=== PATIENT | male | born 1990 | race Two or more races ===

== ENCOUNTER 2016-11-10 10:47 | Emergency (ER) | payer BC ==
[2016-11-10 11:15] VITALS: BP 115/70
[2016-11-10] MEDS ORDERED: Aspirin Low Dose CHEW TAB* 81 MG PO ONE (12:33)
[2016-11-10] MEDS ORDERED: Ketorolac INJ* 30 MG/ML 1 ML VIAL IV PUSH ONE (12:51)
[2016-11-10 13:20] LABS: Comments Flag Yes; Hematocrit 47 % (42-52); Hemoglobin 15.5 g/dl (14.0-18.0); Mean Corpuscular HGB Conc 33 g/dl (31-36); Mean Corpuscular Hemoglobin 29 pg (27-31); Mean Corpuscular Volume 86 fL (80-94); Mean Platelet Volume 12 um3 (7.4-10.4); Red Blood Count 5.42 10^6/ul (4.0-5.4); Red Cell Distribution Width 14 % (10.5-15); White Blood Count 8.4 10^3/ul (3.5-10.8)
--- NOTE | 2016-11-10 13:20 | RAD ---
Indication: Left-sided chest pain. 2 views of the chest including dual energy PA views demonstrate no mediastinal shift. Heart is of normal size and configuration. Lung abrams demonstrate no pleural fluid, pneumonia or pneumothorax. IMPRESSION: No active cardiopulmonary disease is noted.
[2016-11-10 13:21] LABS: Add Diff/Slide Review? Slide Review Added
[2016-11-10 13:31] LABS: Albumin 4.7 g/dL (3.2-5.2); BUN/Creatinine Ratio 10.5 (8-20); Calcium 9.7 mg/dL (8.6-10.3); EGFR African American 124.2 (>60); EGFR Non-African American 96.6 (>60); Globulin 3.6 g/dL (2-4); Potassium 3.9 mmol/L (3.5-5.0); Total Bilirubin 0.7 mg/dL (0.2-1.0); Total Protein 8.3 g/dL (6.4-8.9)
--- NOTE | 2016-11-13 14:27 | ED ---
Merari Rivera Rebecca, scribed for Michael Wise MD on 11/10/16 at 1111 . HPI Chest Pain - HPI Summary HPI Summary: Pt is a 26 y/o M who presents to ED c/o CP. Pain began 2 weeks ago and has been intermittent since onset. Pain is in the left anterior region and is currently moderate, ranked 4/10 and characterized as discomfort. Applied muscle cream [employer]. Sx aggravated by movement of the LUE, alleviated by nothing, unchanged by walking up stairs. Denies cough, fever, chills, diaphoresis. No recent stress or travel prior to onset of sx. Started playing [employer] 2 weeks ago. SHx no smoking. No PMHx or FHx of DVT. No PCP, last saw a doctor about a year ago. - History of Current Complaint Chief Complaint: EDChestPainROMI Time Seen by Provider: 11/10/16 11:03 Hx Obtained From: Patient Onset/Duration: Started Weeks Ago - 2 weeks, Still Present Timing: Intermittent Current Severity: Moderate Pain Intensity: 4 Pain Scale Used: 0-10 Numeric Chest Pain Location: Left Anterior Character: Other: - "discomfort" Aggravating Factor(s): Movement - movement of the LUE Alleviating Factor(s): Nothing Associated Signs and Symptoms: Positive: Negative. Negative: Fever, Chills, Diaphoresis, Cough - Allergy/Home Medications Allergies/Adverse Reactions: Allergies Allergy/AdvReac Type Severity Reaction Status Date / Time No Known Allergies Allergy Verified 11/10/16 10:55 PMH/Surg Hx/FS Hx/Imm Hx Previously Healthy: Yes Endocrine/Hematology History: Denies: Hx Diabetes Cardiovascular History: Denies: Hx Deep Vein Thrombosis Infectious Disease History: No Infectious Disease History: Denies: Traveled Outside the [place] in Last 30 Days - Family History Known Family History: Positive: Other - No known FHx DVT - Social History Occupation: Employed Full-time Alcohol Use: None Substance Use Type: Reports: None Smoking Status (MU): Never Smoked Tobacco Review of Systems Negative: Fever, Chills, Skin Diaphoresis Negative: Erythema Negative: Sore Throat Positive: Chest Pain - Left anterior Negative: Shortness Of Breath, Cough Negative: Abdominal Pain, Vomiting, Nausea Negative: dysuria, hematuria Negative: Myalgia, Edema Negative: Rash Neurological: Other - Negative dizziness All Other Systems Reviewed And Are Negative: Yes Physical Exam - Summary Physical Exam Summary: Constitutional: Well-developed, Well-nourished, Alert. (-) Distressed Skin: Warm, Dry HENT: Normocephalic; Atraumatic Eyes: Conjunctiva normal Neck: Musculoskeletal ROM normal neck. (-) JVD, (-) Stridor, (-) Tracheal deviation Cardio: Rhythm regular, rate normal, Heart sounds normal; Intact distal pulses; The pedal pulses are 2+ and symmetric. Radial pulses are 2+ and symmetric. (-) Murmur Pulmonary/Chest wall: Effort normal. (-) Respiratory distress, (-) Wheezes, (-) Rales Abd: Soft, (-) Tenderness, (-) Distension, (-) Guarding, (-) Rebound Musculoskeletal: (-) Edema, Costochondral tenderness over the left 4th costochondral junction. Lymph: (-) Cervical adenopathy Neuro: Alert, Oriented x3 Psych: Mood and affect Normal Triage Information Reviewed: Yes Vital Signs On Initial Exam: Initial Vitals Temp Pulse Resp BP Pulse Ox 97.3 F 92 16 121/81 100 11/10/16 10:50 11/10/16 10:50 11/10/16 10:50 11/10/16 10:50 11/10/16 10:50 Vital Signs Reviewed: Yes Diagnostics - Vital Signs Vital Signs Temp Pulse Resp BP Pulse Ox 11/10/16 10:50 97.3 F 92 16 121/81 100 - Laboratory Result Diagrams: 11/10/16 12:55 11/10/16 12:55 Lab Statement: Any lab studies that have been ordered have been reviewed, and results considered in the medical decision making process. - Radiology CXR Xray Interpretation: No Acute Changes - No active cardiopulmonary disease is noted. Radiology Interpretation Completed By: Radiologist - EKG 1057 Cardiac Rate: NL - 96 bpm EKG Rhythm: Sinus Rhythm Ectopy: None EKG Interpretation: No STEMI Re-Evaluation - Re-Evaluation First Eval Re-Evaluation Time: 14:02 Comment: Updated the pt on his results and discussed D/C plan. Chest Pain Course/Dx - Course Assessment/Plan: Pt is a 26 y/o M who presents to ED c/o intermittent left anterior CP for two weeks, characterized as discomfort. Pain is currently moderate, ranked 4/10 and characterized as discomfort. Applied muscle cream [employer]. Sx aggravated by movement of the LUE, unchanged by walking up stairs. Denies cough, fever, chills, diaphoresis. No recent stress or travel prior to onset of sx. Started playing [employer] 2 weeks ago. SHx no smoking. No PMHx or FHx of DVT. CXR and EKG reveal no acute findings. Troponin of 0.00, D-Dimer < 200. He will be D/C to home with Dx of costochondritis and a [facility] physician referral. He understands and agrees. Patient medications reviewed this visit. - Diagnoses Provider Diagnoses: Costochondritis Discharge - Discharge Plan Condition: Stable Disposition: HOME Patient Education Materials: Costochondritis (ED) Referrals: [facility] PHYSICIAN REFERRAL [Outside] - 3 Days Additional Instructions: RETURN TO THE EMERGENCY DEPARTMENT FOR CHANGING OR WORSENING SYMPTOMS The documentation as recorded by the Merari cole Rebecca accurately reflects the service I personally performed and the decisions made by , Michael Wise MD.
== END 2016-11-10 14:07 | disposition home or self-care (01) ==
LOC: ED 10:47
DX: M94.0 Chondrocostal junction syndrome [Tietze] (principal)
CPT/HCPCS: 36415; 71020; 80053; 83605; 84484; 85025; 85060; 85379; 93005; 96374; 99282; J1885

== ENCOUNTER 2016-11-15 13:17 | Emergency (ER) | payer BC ==
[2016-11-15] MEDS ORDERED: Aspirin Low Dose CHEW TAB* 81 MG PO ONE (13:41)
[2016-11-15 14:11] LABS: Hematocrit 43 % (42-52); Mean Corpuscular HGB Conc 33 g/dl (31-36); Mean Corpuscular Hemoglobin 29 pg (27-31); Mean Corpuscular Volume 87 fL (80-94); Mean Platelet Volume 12 um3 (7.4-10.4); Red Cell Distribution Width 14 % (10.5-15); White Blood Count 7.3 10^3/ul (3.5-10.8)
[2016-11-15 14:17] LABS: Comments Flag Yes
[2016-11-15 14:26] LABS: Albumin 4.5 g/dL (3.2-5.2); BUN/Creatinine Ratio 11.7 (8-20); Calcium 9.5 mg/dL (8.6-10.3); EGFR African American 94.9 (>60); EGFR Non-African American 73.8 (>60); Globulin 3.3 g/dL (2-4); Potassium 3.8 mmol/L (3.5-5.0); Total Bilirubin 0.9 mg/dL (0.2-1.0); Total Protein 7.8 g/dL (6.4-8.9)
[2016-11-15] MEDS ORDERED: Iohexol 350* (CONTRAST) 500 ML MDV IV ONE (14:29)
--- NOTE | 2016-11-15 15:02 | RAD ---
Indication: Pleuritic chest pain. Contrast: Administered 62.1 ml of OMNIPAQUE 350 mg/ml CTA of the chest was performed after IV contrast administration. Coronal and sagittal reconstructed images were obtained. The pulmonary arterial tree is well opacified. There is no evidence of filling defects in the pulmonary arteries to suggest pulmonary embolus. The aorta demonstrates no evidence of aortic dissection. The heart demonstrates no pericardial effusion. There is no mediastinal or hilar adenopathy noted. The trachea and major bronchi appear patent. The lung abrams demonstrate no evidence of alveolar consolidation. The visualized abdominal organs are otherwise unremarkable. IMPRESSION: No evidence of pulmonary embolus is noted.
[2016-11-15 16:49] LABS: Urine Bilirubin Negative (Negative); Urine Glucose Negative (Negative); Urine Nitrite Negative (Negative)
[2016-11-15 16:55] VITALS: BP 128/89
--- NOTE | 2016-12-02 15:27 | ED ---
Darcie Rivera Edward, scribed for Michael Wise MD on 11/15/16 at 1340 . HPI Chest Pain - HPI Summary HPI Summary: 26 y/o male presents to the ED c/o gradual onset CP lasting 2 and a half weeks and intermittent tightness at the L arm that started a few days ago. He was seen in the ED 5 days ago for the CP and given Ibuprofen, which alleviates the CP. Pt has also developed back pain since being seen in the ED. Associated sx: Ibuprofen induces mild nausea, increased water intake and increased urination at night. Denies SOB and dyspnea. - History of Current Complaint Chief Complaint: EDChestPainROMI Time Seen by Provider: 11/15/16 13:34 Hx Obtained From: Patient Onset/Duration: Started Weeks Ago, Still Present Timing: Intermittent Pain Intensity: 5 Pain Scale Used: 0-10 Numeric Associated Signs and Symptoms: Positive: Chest Pain, Nausea, Back Pain, Other: - L arm tightness. No dyspnea. Negative: Shortness of Breath - Allergy/Home Medications Allergies/Adverse Reactions: Allergies Allergy/AdvReac Type Severity Reaction Status Date / Time No Known Allergies Allergy Verified 11/15/16 13:18 PMH/Surg Hx/FS Hx/Imm Hx Previously Healthy: No Endocrine/Hematology History: Denies: Hx Diabetes Cardiovascular History: Denies: Hx Deep Vein Thrombosis Infectious Disease History: Denies: Traveled Outside the [place] in Last 30 Days - Family History Known Family History: Positive: Other - No known FHx DVT - Social History Lives: With Family Alcohol Use: None Hx Substance Use: No Substance Use Type: Reports: None Hx Tobacco Use: No Smoking Status (MU): Never Smoked Tobacco Review of Systems Negative: Fever, Chills Negative: Erythema Negative: Sore Throat Positive: Chest Pain Negative: Shortness Of Breath, Cough Positive: Nausea. Negative: Abdominal Pain, Vomiting Negative: dysuria, hematuria Musculoskeletal: Other - L arm tightness Negative: Myalgia, Edema Negative: Rash Neurological: Other - No dizziness All Other Systems Reviewed And Are Negative: Yes Physical Exam - Summary Physical Exam Summary: Constitutional: Well-developed, Well-nourished, Alert. (-) Distressed Skin: Warm, Dry HENT: Normocephalic; Atraumatic Eyes: Conjunctiva normal Neck: Musculoskeletal ROM normal neck. (-) JVD, (-) Stridor, (-) Tracheal deviation Cardio: Rhythm regular, rate normal, Heart sounds normal; Intact distal pulses; The pedal pulses are 2+ and symmetric. Radial pulses are 2+ and symmetric. (-) Murmur Pulmonary/Chest wall: Effort normal. (-) Respiratory distress, (-) Wheezes, (-) Rales. Costochondral tenderness @ L 3rd Costochondral junction Abd: Soft, (-) Tenderness, (-) Distension, (-) Guarding, (-) Rebound Musculoskeletal: (-) Edema Lymph: (-) Cervical adenopathy Neuro: Alert, Oriented x3 Psych: Mood and affect Normal Triage Information Reviewed: Yes Vital Signs On Initial Exam: Initial Vitals Temp Pulse Resp BP Pulse Ox 99.3 F 69 16 122/79 100 11/15/16 13:18 11/15/16 13:18 11/15/16 13:18 11/15/16 13:18 11/15/16 13:18 Vital Signs Reviewed: Yes Diagnostics - Vital Signs Vital Signs Temp Pulse Resp BP Pulse Ox 11/15/16 13:18 99.3 F 69 16 122/79 100 - Laboratory Lab Results: Lab Results 11/15/16 11/15/16 11/15/16 Range/Units 14:00 14:00 14:00 WBC 7.3 (3.5-10.8) 10^3/ul RBC 4.90 (4.0-5.4) 10^6/ul Hgb 14.0 (14.0-18.0) g/dl Hct 43 (42-52) % MCV 87 (80-94) fL MCH 29 (27-31) pg MCHC 33 (31-36) g/dl RDW 14 (10.5-15) % Plt Count 60 L (150-450) 10^3/ul MPV 12 H (7.4-10.4) um3 Neut % (Auto) 72.1 (38-83) % Lymph % (Auto) 20.8 L (25-47) % [place] % (Auto) 6.6 (1-9) % Eos % (Auto) 0.3 (0-6) % Baso % (Auto) 0.2 (0-2) % Absolute Neuts (auto) 5.3 (1.5-7.7) 10^3/ul Absolute Lymphs (auto) 1.5 (1.0-4.8) 10^3/ul Absolute Monos (auto) 0.5 (0-0.8) 10^3/ul Absolute Eos (auto) 0 (0-0.6) 10^3/ul Absolute Basos (auto) 0 (0-0.2) 10^3/ul Absolute Nucleated RBC 0 10^3/ul Nucleated RBC % 0.1 Sodium 139 (133-145) mmol/L Potassium 3.8 (3.5-5.0) mmol/L Chloride 104 (101-111) mmol/L Carbon Dioxide 28 (22-32) mmol/L Anion Gap 7 (2-11) mmol/L BUN 14 (6-24) mg/dL Creatinine 1.20 H (0.67-1.17) mg/dL Est GFR ( Amer) 94.9 (>60) Est GFR (Non-Af Amer) 73.8 (>60) BUN/Creatinine Ratio 11.7 (8-20) Glucose 89 (70-100) mg/dL Lactic Acid 0.9 (0.5-2.0) mmol/L Calcium 9.5 (8.6-10.3) mg/dL Total Bilirubin 0.90 (0.2-1.0) mg/dL AST 16 (13-39) U/L ALT 16 (7-52) U/L Alkaline Phosphatase 53 (34-104) U/L Troponin I 0.00 (<0.04) ng/mL Total Protein 7.8 (6.4-8.9) g/dL Albumin 4.5 (3.2-5.2) g/dL Globulin 3.3 (2-4) g/dL Albumin/Globulin Ratio 1.4 (1-3) Urine Color Urine Appearance Urine pH (5-9) Ur Specific [place] (1.010-1.030) Urine Protein (Negative) Urine Ketones (Negative) Urine Blood (Negative) Urine Nitrate (Negative) Urine Bilirubin (Negative) Urine Urobilinogen (Negative) Ur Leukocyte Esterase (Negative) Urine Glucose (Negative) 11/15/16 Range/Units 16:15 WBC (3.5-10.8) 10^3/ul RBC (4.0-5.4) 10^6/ul Hgb (14.0-18.0) g/dl Hct (42-52) % MCV (80-94) fL MCH (27-31) pg MCHC (31-36) g/dl RDW (10.5-15) % Plt Count (150-450) 10^3/ul MPV (7.4-10.4) um3 Neut % (Auto) (38-83) % Lymph % (Auto) (25-47) % [place] % (Auto) (1-9) % Eos % (Auto) (0-6) % Baso % (Auto) (0-2) % Absolute Neuts (auto) (1.5-7.7) 10^3/ul Absolute Lymphs (auto) (1.0-4.8) 10^3/ul Absolute Monos (auto) (0-0.8) 10^3/ul Absolute Eos (auto) (0-0.6) 10^3/ul Absolute Basos (auto) (0-0.2) 10^3/ul Absolute Nucleated RBC 10^3/ul Nucleated RBC % Sodium (133-145) mmol/L Potassium (3.5-5.0) mmol/L Chloride (101-111) mmol/L Carbon Dioxide (22-32) mmol/L Anion Gap (2-11) mmol/L BUN (6-24) mg/dL Creatinine (0.67-1.17) mg/dL Est GFR ( Amer) (>60) Est GFR (Non-Af Amer) (>60) BUN/Creatinine Ratio (8-20) Glucose (70-100) mg/dL Lactic Acid (0.5-2.0) mmol/L Calcium (8.6-10.3) mg/dL Total Bilirubin (0.2-1.0) mg/dL AST (13-39) U/L ALT (7-52) U/L Alkaline Phosphatase (34-104) U/L Troponin I (<0.04) ng/mL Total Protein (6.4-8.9) g/dL Albumin (3.2-5.2) g/dL Globulin (2-4) g/dL Albumin/Globulin Ratio (1-3) Urine Color Straw Urine Appearance Clear Urine pH 6.0 (5-9) Ur Specific [place] 1.023 (1.010-1.030) Urine Protein Negative (Negative) Urine Ketones Negative (Negative) Urine Blood Negative (Negative) Urine Nitrate Negative (Negative) Urine Bilirubin Negative (Negative) Urine Urobilinogen Negative (Negative) Ur Leukocyte Esterase Negative (Negative) Urine Glucose Negative (Negative) Result Diagrams: 11/15/16 14:00 11/15/16 14:00 Lab Statement: Any lab studies that have been ordered have been reviewed, and results considered in the medical decision making process. - CT CHEST/THORAX CTA CT Interpretation: No Acute Changes - No evidence of pulmonary embolus is noted. CT Interpretation Completed By: Radiologist - EKG 1 EKG Rhythm: Sinus Rhythm - @ 61 bpm EKG Interpretation: 13:28 - No STEMI Re-Evaluation - Re-Evaluation 1 Re-Evaluation Time: 16:35 Change: Improved - Pain free. Pt states he has been under stress lately due to VISA issues Chest Pain Course/Dx - Course Assessment/Plan: 26 y/o male presents to the ED c/o gradual onset CP lasting 2 and a half weeks and intermittent tightness at the L arm that started a few days ago. He was seen in the ED 5 days ago for the CP and given Ibuprofen, which alleviates the CP. Pt has also developed back pain since being seen in the ED. Associated sx: Ibuprofen induces mild nausea, increased water intake and increased urination at night. Denies SOB and dyspnea. EKG @ 13:28 shows No STEMI and SINUS RHYTHM @ 61 bpm. CHEST/THORAX CTA SHOWS No evidence of pulmonary embolus is noted. On re-eval, pt is pain free. Pt will be d/c home with f/u with [facility] Physician referral. Pt states he is dealing with recent VISA issues that have caused him increased stress. Pt will be instructed to discontinue Ibuprofen. - Diagnoses Provider Diagnoses: GI intolerance of medication, Stress reaction, Costochondritis Discharge - Discharge Plan Condition: Stable Disposition: HOME Prescriptions: Pantoprazole Sodium [Protonix] 20 mg PO DAILY #7 tab Patient Education Materials: Costochondritis (ED), Stress (ED) Referrals: [facility] PHYSICIAN REFERRAL [Outside] - 3 Days (Please f/u in 2-3 days or whenever convenient) The documentation as recorded by the Darcie cole Edward accurately reflects the service I personally performed and the decisions made by Billie edward Jerry, MD.
== END 2016-11-15 16:57 | disposition home or self-care (01) ==
LOC: ED 13:17
DX: K30 Functional dyspepsia (principal); F43.9 Reaction to severe stress, unspecified; M94.0 Chondrocostal junction syndrome [Tietze]; R07.9 Chest pain, unspecified; R11.10 Vomiting, unspecified; R11.0 Nausea
CPT/HCPCS: 36415; 71275; 80053; 81003; 83605; 84484; 85025; 93005; 99283; Q9967